=== PATIENT | female | born 1995 | race Caucasian/White ===

== ENCOUNTER 2018-10-15 05:45 | Emergency (ER) | payer BC ==
[~2018-10-15] VITALS: Ht 162.6 cm; Wt 60.3 kg
[2018-10-15] MEDS ORDERED: MYORISAN30 MG PO (06:03)
[2018-10-15 06:33] LABS: URINE BILIRUBIN NEGATIVE (Negative); URINE BLOOD 3+ (Negative); URINE CLARITY SL CLOUDY; URINE COLOR RED; URINE GLUCOSE-RANDOM* NEGATIVE (Negative); URINE KETONES NEGATIVE (Negative); URINE NITRITE-REFLEX NEGATIVE (Negative); URINE PROTEIN (DIPSTICK) 3+ (Negative); URINE SPECIFIC GRAVITY >= 1.030 (1.005-1.035)
[2018-10-15 06:40] LABS: URINE LEUKOCYTES-REFLEX 1+ (Negative)
[2018-10-15 07:12] LABS: CASTS None Seen /LPF (None Seen); CRYSTALS None Seen /LPF (None Seen); SQUAMOUS 4-10 Moderate /LPF (0-3); URINE RBC >20 Many /HPF (0-2); URINE WBC-REFLEX 6-15 Few /HPF (0-5)
[2018-10-15] MEDS ORDERED: MACROBID 100 M100 M1 PO (07:15)
[2018-10-15 07:25] VITALS: BP 125/63
== END 2018-10-15 12:43 | disposition home or self-care (01) ==
LOC: ER 05:45
PROVIDERS: Emergency Medicine
DX: N39.0 Urinary tract infection, site not specified (principal); Z88.1 Allergy status to other antibiotic agents

== ENCOUNTER 2019-02-12 15:51 | Emergency (ER) | payer BC ==
[~2019-02-12] VITALS: Ht 162.6 cm; Wt 59.0 kg
[~2019-02-12 15:51] MED LIST: MACROBID 100 M100 M1 PO; MYORISAN30 MG PO
[2019-02-12] MEDS ORDERED: BACTRIM DS TAB1 EACH PO (17:22)
[2019-02-12 17:27] VITALS: BP 110/68
== END 2019-02-12 17:28 | disposition home or self-care (01) ==
LOC: ER 15:51
DX: L02.31 Cutaneous abscess of buttock (principal); Z88.8 Allergy status to other drugs, medicaments and biological substances